=== PATIENT | female | born 1950 | race Caucasian/White ===

== ENCOUNTER 2017-04-27 13:04 | Outpatient (CLI) | payer OTHER, MEDICARE ==
--- NOTE | 2017-04-28 14:32 | Mammography Report ---
DIGITAL SCREENING MAMMOGRAM: 04/27/2017 CLINICAL INDICATION: A 66-year-old, for screening. COMPARISON: 10/2012, 06/2011, 06/2010, 08/2008, 01/2007. TECHNIQUE: Routine CC and MLO projections were obtained of the breasts. FINDINGS: The breasts again demonstrate heterogeneously dense fibroglandular parenchyma bilaterally. Coarse and punctate, typically benign calcifications are present. No suspicious masses, clustered mi crocalcifications, or regions of architectural distortion are identified. IMPRESSION: BENIGN FINDINGS. RECOMMENDATION: ROUTINE ANNUAL SCREENING UNLESS OTHERWISE CLINICALLY INDICATED. BIRADS CATEGORY 2-BENIGN FINDINGS. STANDARD QUALIFYING STATEMENTS 1. This examination was reviewed with the aid of Computer-Aided Detection (CAD). 2. A negative or benign imaging report should not delay biopsy if clinically suspicious findings are present. Consider surgical consultation if warranted. More than 5% of cancers are not identified by i maging. 3. Dense breasts may obscure an underlying neoplasm. JOB #: [id number] EXT JOB #:[id number]
== END 2017-04-27 13:05 | disposition home or self-care (01) ==
LOC: DI 13:04
PROVIDERS: ATTEND Specialist
DX: Z12.31 Encounter for screening mammogram for malignant neoplasm of breast (principal)
CPT/HCPCS: 77067

== ENCOUNTER 2018-12-25 07:33 | Emergency (ER) | payer MEDICARE, BC ==
[2018-12-25] MEDS ORDERED: SODIUM CHLORIDE 0.9% 1,000 ML IV ONE (08:04)
--- NOTE | 2018-12-25 08:07 | ED Physician Documentation ---
History of Present Illness - Stated complaint Stated Complaint: DIZZY/LUMP ON HEAD - Chief complaint Chief Complaint: Neuro - History obtained from History obtained from: Patient, Family - History of Present Illness Timing: Today - Additonal information Additional information: 68-year-old female previously well was doing her usual morning routine when she became suddenly dizzy and developed a headache. She felt near syncopal but did not faint and sat down. She has noticed a lump on the back of her head and she continues to have a low-grade headache. She denies any nausea or vomiting and states that she has not been ill recently. She did go to the dentist yesterday to have a temporary crown placed. She spent about an hour in the dental chair. She had her usual dinner last night usual fluids. She indicates that when she had this dizziness and near syncope that she had distant hearing. Review of Systems Constitutional: denies: Fever, Chills, Myalgias Eyes: denies: Decreased vision Ears: reports: Loss of hearing. denies: Ear pain Nose: denies: Rhinorrhea / runny nose, Congestion Throat: denies: Sore throat Cardiac: denies: Chest pain / pressure, Palpitations Respiratory: denies: Dyspnea, Cough GI: denies: Abdominal Pain, Nausea, Vomiting : denies: Dysuria, Frequency Skin: denies: Rash Musculoskeletal: denies: Neck pain, Back pain, Extremity pain Neurologic: reports: Near syncope, Headache. denies: Generalized weakness, Focal weakness, Numbness, Difficulty speaking, Head injury, LOC PD PAST MEDICAL HISTORY - Present Medications Home Medications: Ambulatory Orders Medication Instructions Recorded Confirmed Atenolol 50 mg PO BID 12/25/18 12/25/18 Trospium Chloride 20 mg PO BID 12/25/18 12/25/18 - Allergies Allergies/Adverse Reactions: Allergies Allergy/AdvReac Type Severity Reaction Status Date / Time meperidine [From Demerol] Allergy Severe Nausea Verified 12/25/18 08:16 morphine Allergy Severe Nausea Verified 12/25/18 08:16 PD ED PE NORMAL - Vitals Vital signs reviewed: Yes (hypertensive ) - General General: Alert and oriented X 3, No acute distress, Well developed/nourished - HEENT HEENT: PERRL, EOMI, Ears normal, Other (dry mucuos membranes. There is a firm mass to the occiput without tenderness.) - Neck Neck: Supple, no meningeal sign, No bony TTP - Cardiac Cardiac: RRR, No murmur - Respiratory Respiratory: No respiratory distress, Clear bilaterally - Abdomen Abdomen: Soft, Non tender - Back Back: No CVA TTP, No spinal TTP - Derm Derm: Normal color, Warm and dry, No rash - Extremities Extremities: No deformity, No edema - Neuro Neuro: Alert and oriented X 3, die turner 2-12 intact, No motor deficit, No sensory deficit, Normal speech Eye Opening: Spontaneous Motor: Obeys Commands Verbal: Oriented GCS Score: 15 - Psych Psych: Normal mood Results - Vitals Vitals: Vital Signs - 24 hr 12/25/18 12/25/18 07:40 07:45 Temperature 36.8 C Heart Rate 77 68 Respiratory 18 10 L Rate Blood Pressure 173/91 H 166/85 H O2 Saturation 98 99 Oxygen O2 Source Room air - EKG (time done) 0743 Rate: Rate (enter#) (72) Rhythm: NSR, LAE QRS: Low voltage Ischemia: Other (borderline ST elevation inferior leads ) Compare to prior EKG: Old EKG unavailable Computer interpretation: Agree with computer - Labs Labs: Laboratory Tests 12/25/18 12/25/18 12/25/18 07:56 07:56 07:56 WBC 7.3 RBC 4.54 Hgb 13.3 Hct 40.0 MCV 88.0 MCH 29.2 MCHC 33.2 RDW 13.9 Plt Count 193 MPV 8.2 Neut # (Auto) 5.7 Lymph # (Auto) 1.1 L Dale # (Auto) 0.3 Eos # (Auto) 0.1 Baso # (Auto) 0.0 Absolute Nucleated RBC 0.01 Nucleated RBC % 0.1 Sodium 137 Potassium 3.5 Chloride 100 L Carbon Dioxide 29 Anion Gap 8.0 BUN 16 Creatinine 0.7 Estimated GFR (MDRD) 83 L Glucose 144 H Calcium 8.9 Total Bilirubin 0.8 AST 31 ALT 22 Alkaline Phosphatase 102 Troponin I < 0.04 Total Protein 6.9 Albumin 4.0 Globulin 2.9 Albumin/Globulin Ratio 1.4 Lipase 39 - Rads (name of study) CT head without Radiology: Prelim report reviewed (Impression: Suspect left temporal and left frontal predominant subarachnoid bleed.), EMP read indepedently, See rad report Procedures - IVC sono (time) 0800 Bedside IVC sono: IVC measures (cm) (0.77), Dehydration (est 2 liter deficit) PD MEDICAL DECISION MAKING - ED course Complexity details: reviewed results, re-evaluated patient, considered differential, d/w patient, d/w family ED course: Previously well 68-year-old female with a near syncopal episode this morning with associated headache appears dehydrated on interrogation the inferior vena cava. She is administered intravenous saline and a workup is begun. CT of the head reveals subarachnoid hemorrhage and the transfer center at [facility] is consulted and arrangements were made for transfer to the ED with Dr. Maribel hardy. Departure - Departure Disposition: 02 Transfer Acute Care Hosp Clinical Impression: Subarachnoid hemorrhage Condition: Stable
[2018-12-25 08:11] LABS: BASOPHILS % (AUTO) 0.5 %; EOSINOPHILS # (AUTO) 0.1 10^3/uL (0.0-0.7); EOSINOPHILS % (AUTO) 1.8 %; HGB - HEMOGLOBIN 13.3 g/dL (12.0-16.0); LYMPHOCYTES # (AUTO) 1.1 10^3/uL (1.5-3.5); LYMPHOCYTES % (AUTO) 15.4 %; MEAN CORPUSCULAR HEMOGLOBIN 29.2 pg (27.0-31.0); MEAN CORPUSCULAR HGB CONC 33.2 g/dL (32.0-36.0); MEAN PLATELET VOLUME 8.2 fL (7.9-10.8); MONOCYTES # (AUTO) 0.3 10^3/uL (0.0-1.0); MONOCYTES % (AUTO) 4.6 %; NEUTROPHILS # (AUTO) 5.7 10^3/uL (1.5-6.6); NEUTROPHILS % (AUTO) 77.7 %; PLT - PLATELET COUNT 193 10^3/uL (130-450); RED BLOOD COUNT 4.54 10^6/uL (4.20-5.40); RED CELL DISTRIBUTION WIDTH 13.9 % (12.0-15.0); WHITE BLOOD COUNT 7.3 x10^3/uL (4.8-10.8)
[2018-12-25 08:30] LABS: ALBUMIN/GLOBULIN RATIO 1.4 (1.0-2.2); BILIRUBIN,TOTAL 0.8 mg/dL (0.2-1.0); CALCIUM 8.9 mg/dL (8.5-10.3); CREATININE 0.7 mg/dL (0.4-1.0); TOTAL PROTEIN 6.9 g/dL (6.7-8.2)
--- NOTE | 2018-12-25 08:49 | CT Report ---
Reason: headache near syncope lump on back of head Procedure Date: 12/25/2018 Accession Number: [id number] / [id number] Procedure: CT - HEAD WO CPT Code: FULL RESULT: EXAM: CT HEAD EXAM DATE: 12/25/2018 08:35 AM. CLINICAL HISTORY: Headache near syncope lump on back of head. COMPARISON: None. TECHNIQUE: Multiaxial CT images were obtained from the foramen magnum to the vertex. Reformats: Sagittal and coronal. IV contrast: None. In accordance with CT protocol optimization, one or more of the following dose reduction techniques were utilized for this exam: automated exposure control, adjustment of mA and/or KV based on patient size, or use of iterative reconstructive technique. FINDINGS: Parenchyma: No intraparenchymal hemorrhage. No evidence of mass, midline shift. Montero-white differentiation is distinct. Extraaxial Spaces: Linear high density material is seen along the dural surface of the anterior left temporal lobe and in predominantly left frontal fusion, concerning for subarachnoid blood. Compared to the right infratemporal fossa, there is some loss of extra-axial space suggesting edema of adjacent brain parenchyma. No subdural or epidural collections identified. Ventricles: The basal cisterns as well as lateral ventricles are mostly preserved except for a subtle loss of the size of the left temporal horn as compared to the right, presumably due to the suspected blood in the left temporal fossa. Sinuses and Orbits: Imaged paranasal sinuses, orbits, and mastoids show no significant abnormality. Bones: No evidence of fracture or calvarial defect. Other: None. IMPRESSION: Suspect left temporal and left frontal predominant subarachnoid bleed. RADIA CRITICAL RESULT: The findings were discussed with Dr. Cali on 12/25/2018 at 8:48 AM.
[2018-12-25] MEDS ORDERED: ONDANSETRON 4 MG/2 ML VIAL IVP STA (09:12)
[2018-12-25 09:53] VITALS: BP 158/83
== END 2018-12-25 10:12 | disposition short-term general hospital (02) ==
LOC: ED 07:33
DX: I60.9 Nontraumatic subarachnoid hemorrhage, unspecified (principal); R55 Syncope and collapse; E86.0 Dehydration; Z98.811 Dental restoration status
CPT/HCPCS: 36415; 70450; 80053; 83690; 84484; 85025; 93005; 96361; 96374; 99284

== ENCOUNTER 2019-01-03 08:16 | Emergency (ER) | payer MEDICARE, BC ==
[2019-01-03 08:29] VITALS: BP 158/101
--- NOTE | 2019-01-03 08:35 | ED Physician Documentation ---
History of Present Illness - Stated complaint Stated Complaint: POSS ALERGIC REACTION - Chief complaint Chief Complaint: Allergic Rx - History obtained from History obtained from: Patient, Family - History of Present Illness Timing: How many days ago (6) - Additonal information Additional information: 68-year-old female who sustained a spontaneous subarachnoid hemorrhage 9 days ago was transported down to [facility] and she was on a number of different medications while she was there and she began to develop a rash and itching about 1 week ago. She took some Benadryl while she was in the hospital the rash seemed to get better and she is now been home for 2 days. Her rash has worsened and she is itching a lot and is uncomfortable. The last medication that she was on was oxybutynin and she has stopped this as well. She is now only taking atenolol and senna. These are medicines she has taken for a long time. Review of Systems Constitutional: denies: Fever Eyes: denies: Decreased vision Ears: denies: Ear pain Nose: denies: Congestion Throat: denies: Sore throat Cardiac: denies: Chest pain / pressure, Palpitations Respiratory: denies: Dyspnea, Cough GI: denies: Abdominal Pain, Nausea, Vomiting : denies: Dysuria, Frequency Skin: reports: Rash Musculoskeletal: denies: Neck pain, Back pain, Extremity pain Neurologic: denies: Generalized weakness, Focal weakness, Numbness PD PAST MEDICAL HISTORY - Past Medical History Past Medical History: Yes Cardiovascular: Hypertension, Other Neuro: Other Musculoskeletal: Osteoarthritis Other Past Medical History: Spontaneous SAH 01/18 - Past Surgical History Past Surgical History: Yes Ortho: Shoulder arthroplasty, Other /CAM [employer]ER: Dilation and currettage HEENT: Tonsil/Adenoidectomy - Present Medications Home Medications: Ambulatory Orders Medication Instructions Recorded Confirmed Atenolol 50 mg PO BID 12/25/18 12/25/18 Famotidine 20 mg PO BID 01/03/19 01/03/19 Meclizine [Antivert] 12.5 mg 01/03/19 Ondansetron HCl [Zofran] 8 mg 01/03/19 Oxybutynin [Ditropan] 5 mg BID 01/03/19 01/03/19 Senna [Senokot] 17.2 mg BID 01/03/19 01/03/19 niMODipine [Nimodipine] 0 mg 01/03/19 predniSONE [Prednisone] 40 mg PO DAILY #10 tablet 01/03/19 - Allergies Allergies/Adverse Reactions: Allergies Allergy/AdvReac Type Severity Reaction Status Date / Time meperidine [From Demerol] Allergy Severe Nausea Verified 01/03/19 08:29 morphine Allergy Severe Nausea Verified 01/03/19 08:29 - Social History Does the pt smoke?: No Smoking Status: Never smoker Does the pt drink ETOH?: No Does the pt have substance abuse?: No - Immunizations Immunizations are current?: Yes - POLST Patient has POLST: No PD ED PE NORMAL - Vitals Vital signs reviewed: Yes (hypertensive ) - General General: Alert and oriented X 3, No acute distress, Well developed/nourished - HEENT HEENT: Atraumatic, PERRL, EOMI - Neck Neck: Supple, no meningeal sign, No bony TTP - Cardiac Cardiac: RRR, No murmur - Respiratory Respiratory: No respiratory distress, Clear bilaterally - Abdomen Abdomen: Soft, Non tender - Back Back: No CVA TTP, No spinal TTP - Derm Derm: Normal color, Warm and dry, Other (urticarial erythematous rash is body wide but spares the face. The quality of the rash is consistent with a drug rash. ) - Extremities Extremities: No deformity, No edema - Neuro Neuro: Alert and oriented X 3, material planner 2-12 intact, No motor deficit, No sensory deficit, Normal speech Eye Opening: Spontaneous Motor: Obeys Commands Verbal: Oriented GCS Score: 15 - Psych Psych: Normal mood, Normal affect Results - Vitals Vitals: Vital Signs - 24 hr 01/03/19 08:20 Temperature 36.6 C Heart Rate 89 Respiratory 16 Rate Blood Pressure 158/101 H O2 Saturation 98 Oxygen O2 Source Room air PD MEDICAL DECISION MAKING - ED course Complexity details: considered differential, d/w patient, d/w family ED course: 68-year-old female with a recent spontaneous subarachnoid hemorrhage has developed a drug rash from unknown drug. She is now off of all medications with the exception of her antihypertensive which she has been on for years. She is administered prednisone 60 mg orally we will put her on 40 mg a day for 5 days I have encouraged her use an anti-histamine for 2 days. Departure - Departure Disposition: 01 Home, Self Care Clinical Impression: Urticarial rash Condition: Stable Instructions: ED Urticaria, ED Drug React Allergic Follow-Up: Gio Pandey MD [Primary Care Provider] - Prescriptions: predniSONE [Prednisone] 40 mg PO DAILY #10 tablet
[2019-01-03] MEDS ORDERED: predniSONE 20 MG TABLET PO STA (08:50)
== END 2019-01-03 09:15 | disposition home or self-care (01) ==
LOC: ED 08:16
DX: L50.9 Urticaria, unspecified (principal); R21 Rash and other nonspecific skin eruption; T50.905A Adverse effect of unspecified drugs, medicaments and biological substances, initial encounter; I10 Essential (primary) hypertension
CPT/HCPCS: 99283; J7512

== ENCOUNTER 2019-04-25 09:52 | Day surgery (SDC) | payer MEDICARE, BC ==
[2019-04-25] MEDS ORDERED: LACTATED RINGERS 1,000 ML IV ONE (09:59)
[2019-04-25] MEDS ORDERED: MIDAZOLAM 2 MG/2 ML VIAL IVP ONE (11:01)
[2019-04-25] MEDS ORDERED: fentaNYL 250 MCG/5 ML VIAL IVP ONE (11:01)
[2019-04-25 12:11] VITALS: BP 113/69
== END 2019-04-25 09:53 | disposition home or self-care (01) ==
LOC: SDS 09:52
PROVIDERS: ATTEND Surgery
PROC: 0DBN8ZZ Excision of Sigmoid Colon, Via Natural or Artificial Opening Endoscopic (ICD-10-PCS; principal; 2019-04-25 11:15)
DX: Z12.11 Encounter for screening for malignant neoplasm of colon (principal); D12.5 Benign neoplasm of sigmoid colon; K64.8 Other hemorrhoids; I10 Essential (primary) hypertension; E66.9 Obesity, unspecified; Z68.41 Body mass index [BMI] 40.0-44.9, adult
CPT/HCPCS: 45380; J3010; J7120

== ENCOUNTER 2019-09-24 10:05 | Outpatient (CLI) | payer MEDICARE, BC ==
[2019-09-24 10:46] LABS: ALBUMIN 4.3 g/dL (3.2-5.5); ALBUMIN/GLOBULIN RATIO 1.7 (1.0-2.2); ALKALINE PHOSPHATASE 89 IU/L (42-121); ALT ALANINE AMINOTRANSFERASE 15 IU/L (10-60); AST ASPARTATE AMINOTRANSFERASE 21 IU/L (10-42); BILIRUBIN,TOTAL 0.5 mg/dL (0.2-1.0); BUN - BLOOD UREA NITROGEN 17 mg/dL (6-20); CALCIUM 9.3 mg/dL (8.5-10.3); CARBON DIOXIDE - CO2 27 mmol/L (21-32); CHLORIDE 105 mmol/L (101-111); CHOL/HDL RATIO 4.6 (<4.4); CHOLESTEROL 217 mg/dL; CREATININE 0.6 mg/dL (0.4-1.0); GFR - MDRD 99 (>89); GLUCOSE 120 mg/dL (70-100); HDL CHOLESTEROL 47 mg/dL; LDL CHOLESTEROL,CALCULATED 139 mg/dL; SODIUM 140 mmol/L (135-145); TOTAL PROTEIN 6.9 g/dL (6.7-8.2); VLDL CHOLESTEROL 31 mg/dL
== END 2019-09-24 10:06 | disposition home or self-care (01) ==
LOC: LAB 10:05
PROVIDERS: ATTEND Internal Medicine Cardiovascular Disease
DX: E78.5 Hyperlipidemia, unspecified (principal); R01.1 Cardiac murmur, unspecified; I10 Essential (primary) hypertension; R00.2 Palpitations
CPT/HCPCS: 36415; 80053; 80061; 83721; 83735; 84443